=== PATIENT | female | born 1960 | race American Indian/Alaskan Native ===

== ENCOUNTER 2018-11-17 12:00 | Emergency (ER) | payer OTHER ==
--- NOTE | 2018-11-17 14:33 | Emergency Department Report ---
ED General Adult HPI - General Chief complaint: Medical Clearance Stated complaint: TONGUE BURNING Time Seen by Provider: 11/17/18 13:40 Source: patient Mode of arrival: Ambulatory Limitations: No Limitations - History of Present Illness Initial comments: This is a 58-year-old female with past medical history of high blood pressure taken with metoprolol and amlodipine who presents to the ED today complaining of a burning sensation and a tall that has been intermittent for the past 3 months. Patient denies any swelling or injury or trauma to the tongue. She denies any difficulty swallowing or throat pain. Patient states she is also been experiencing a frontal type migraine headache for the past week. She denies any trauma, fever, blurred vision - Related Data Previous Rx's Medication Instructions Recorded Last Taken Type Butalb/Acetamin/Caff 50-325-40 1 tab PO Q8HR PRN #30 tablet 11/17/18 Unknown Rx [Fioricet 50-325-40] Chlorhexidine Mouthwash [Peridex] 15 ml MM BID #1 bottle 11/17/18 Unknown Rx Allergies Allergy/AdvReac Type Severity Reaction Status Date / Time No Known Allergies Allergy Unverified 11/17/18 12:03 ED Review of Systems ROS: Stated complaint: TONGUE BURNING Other details as noted in HPI Comment: All other systems reviewed and negative ED Past Medical Hx - Past Medical History Hx Hypertension: Yes - Surgical History Past Surgical History?: No - Social History Smoking Status: Never Smoker Substance Use Type: None - Medications Home Medications: Home Medications Medication Instructions Recorded Confirmed Last Taken Type Butalb/Acetamin/Caff 50-325-40 1 tab PO Q8HR PRN #30 tablet 11/17/18 Unknown Rx [Fioricet 50-325-40] Chlorhexidine Mouthwash [Peridex] 15 ml MM BID #1 bottle 11/17/18 Unknown Rx ED Physical Exam - General Limitations: No Limitations General appearance: alert, in no apparent distress - Head Head exam: Present: atraumatic, normocephalic - Eye Eye exam: Present: normal appearance Pupils: Present: normal accommodation - ENT ENT exam: Present: normal exam, mucous membranes moist, other (No ulcers, lesions on the tongue.) - Expanded ENT Exam Expanded Mouth exam: Present: normal external inspection, tongue normal. Absent: tongue elevation, laceration Teeth exam: Present: normal inspection. Absent: fractured tooth # Throat exam: Positive: normal inspection. Negative: tonsillar erythema, tonsillar exudate, R peritonsillar mass - Neck Neck exam: Present: normal inspection - Respiratory Respiratory exam: Present: normal lung sounds bilaterally. Absent: respiratory distress - Cardiovascular Cardiovascular Exam: Present: regular rate, normal rhythm. Absent: systolic murmur, diastolic murmur, rubs, gallop - GI/Abdominal GI/Abdominal exam: Present: soft, normal bowel sounds - Extremities Exam Extremities exam: Present: normal inspection - Back Exam Back exam: Present: normal inspection - Neurological Exam Neurological exam: Present: alert, oriented X3 - Psychiatric Psychiatric exam: Present: normal affect, normal mood - Skin Skin exam: Present: warm, dry, intact, normal color. Absent: rash ED Course Vital Signs 11/17/18 12:07 Temperature 98.3 F Pulse Rate 114 H Respiratory 16 Rate Blood Pressure 153/85 [Left] O2 Sat by Pulse 96 Oximetry ED Medical Decision Making - Medical Decision Making 58-year-old female with history of hypertension presenting with a burning sensation of the tongue. Upon examination patient on the lesions to the mouth. Patient has also sensation in the mouth and tongue. Cranial nerves are intact. Patient on the neurologic deficit. Discussed follow-up with her primary care physician for blood pressure management. Discussed the patient will follow-up with her ENT doctor if symptoms persist. Vital signs are normal patient is in no acute distress. Critical care attestation.: If time is entered above; I have spent that time in minutes in the direct care of this critically ill patient, excluding procedure time. ED Disposition Clinical Impression: Tongue pain, Migraine headache without aura Disposition: - TO HOME OR SELFCARE Is pt being admited?: No Does the pt Need Aspirin: No Condition: Stable Instructions: Hypertension (ED), Canker Sores (ED), Tension Headache (ED) Additional Instructions: Make sure to follow up with the primary care physician as discussed. Take all your medications as you've been prescribed. If you have any worsening symptoms or develop new symptoms please return to ED immediately. Prescriptions: Butalb/Acetamin/Caff 50-325-40 [Fioricet 50-325-40] 1 tab PO Q8HR PRN #30 tablet PRN Reason: Headache Chlorhexidine Mouthwash [Peridex] 15 ml MM BID #1 bottle [facility]Primary Care Provider] - 3-5 Days [facility] [Provider Group] - 3-5 Days [facility] [Outside] - 3-5 Days [facility] [Outside] - 3-5 Days Forms: Accompanied Note, Work/School Release Form(ED) Time of Disposition: 14:36
[2018-11-17 14:54] VITALS: BP 140/82
== END 2018-11-17 14:52 | disposition home or self-care (01) ==
LOC: ED 12:00
DX: K14.6 Glossodynia (principal); G43.009 Migraine without aura, not intractable, without status migrainosus; I10 Essential (primary) hypertension
CPT/HCPCS: 99282